=== PATIENT | male | born 2000 | race African-American/Black ===

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

== ENCOUNTER 2018-06-25 12:38 | Emergency (ER) | payer OTHER ==
[~2018-06-25] VITALS: Ht 188 cm; Wt 84.0 kg
[~2018-06-25 12:38] MED LIST changes: +IBUP-1541 PO; +IBUP-1561 PO; -IBUP400T22 PO
[2018-06-25 12:42] VITALS: BP 173/74; PULSE 69; RESP 20; Ht 188 cm; Wt 84.0 kg
--- NOTE | 2018-06-25 13:29 | ERD ---
ER Documentation Chief Complaint Chief Complaint frequent urination-dark urine since yesterday; denies foul smelling/pain HPI This a very pleasant 17-year-old male who presents to the emergency room stating that he has urinary frequency. The patient states that he has been told he has high blood pressure since the age of 14. Patient is an athlete at a local college. States that he exercises regularly. He denies any dysuria or urgency. He notes some darkening of the urine. He does not take anything for his blood pressure. He denies any headache chest pain or shortness of breath. No penile lesions or history of STDs. The patient denies any drugs or alcohol. ROS All systems reviewed and are negative except as per history of present illness. Medications Home Meds Active Scripts Bacitracin* (Bacitracin Oint (UD)*) 1 Applic Oint, 1 APPLIC TOP ONCE for 7 Days, PKT APPLY TO Prov:DOMENIC TRONCOSO 07/08/15 Ibuprofen* (Motrin*) 400 Mg Tab, 400 MG PO Q6H PRN for PAIN AND OR ELEVATED TEMP, #30 TAB Prov:MARQUISE PEREZ [employer]AVA [employer]ACLE DEVELOPER 03/14/15 Reported Medications Ibuprofen* (Ibuprofen*) Unknown Strength Tablet, PO QID, TAB 03/14/15 Allergies Allergies: Coded Allergies: peanut (Verified Allergy, Unknown, 07/08/15) shellfish derived (Verified Allergy, Unknown, 07/08/15) PMhx/Soc History of Surgery: No Anesthesia Reaction: No Hx Neurological Disorder: No Hx Respiratory Disorders: Yes (asthma) Hx Cardiac Disorders: No Hx Psychiatric Problems: No Hx Miscellaneous Medical Probl: No Hx Alcohol Use: No Hx Substance Use: No Hx Tobacco Use: No Smoking Status: Never smoker FmHx Family History: No diabetes, No coronary disease Physical Exam Vitals Vital Signs Date Temp Pulse Resp B/P (MAP) Pulse Ox O2 O2 Flow FiO2 Time Delivery Rate 06/25/18 97.2 69 20 173/74 100 12:42 (107) Physical Exam General: Well developed, well nourished, no acute distress Head: Normocephalic, atraumatic. Eyes: Pupils equally reactive, EOM intact ENT: Moist mucous membranes Neck: Supple, no lymphadenopathy Respiratory: Lungs clear bilaterally, no distress Cardiovascular: RRR, no murmurs, rubs, or gallops Abdominal: Soft, non-tender, non-distended, no peritoneal signs : Deferred MSK: No edema, no unilateral swelling, 5/5 strength Neurologic: Alert and oriented, moving all extremities, normal speech, no focal weakness, no cerebellar signs Skin: No rash Psych: Normal mood Result Diagram: 06/25/18 1310 Results 24 hrs Laboratory Tests Test 06/25/18 13:10 Urine Color COLORLESS Urine Clarity CLEAR Urine pH 7.0 Urine Specific [place] 1.001 Urine Ketones NEGATIVE mg/dL Urine Nitrite NEGATIVE mg/dL Urine Bilirubin NEGATIVE mg/dL Urine Urobilinogen NEGATIVE mg/dL Urine Leukocyte Esterase NEGATIVE Erich/ul Urine Hemoglobin NEGATIVE mg/dL Urine Glucose NEGATIVE mg/dL Urine Total Protein NEGATIVE mg/dl Sodium Level 145 mmol/L Potassium Level 3.7 mmol/L Chloride Level 105 mmol/L Carbon Dioxide Level 29 mmol/L Anion Gap 11 Blood Urea Nitrogen 13 mg/dl Creatinine 0.94 mg/dl Est Glomerular Filtrat Rate mL/min > 60 mL/min Glucose Level 99 mg/dl Calcium Level 10.2 mg/dl Procedures/MDM LAB INTERPRETATION: I reviewed the laboratory testing and it shows no evidence of acute process MEDICAL DECISION MAKING: Patient presents with asymptomatic hypertension and urinary frequency. A broad differential exists, this is possibly related to his underlying essential hypertension. The patient needs to talk to his primary care physician. He saw the primary care doctor 2 months ago. They did not have an active plan for his blood pressure. I do not feel comfortable initiating antihypertensive medications in the emergency room setting given recent follow-up with primary care physician. Patient will benefit from chemistry profile, urinalysis to rule out infectious process or renal insufficiency related to hypertension. No chest pain or headache to suggest hypertensive emergency. ER COURSE: * Laboratory testing is otherwise unrevealing. At this point the patient can be safely discharged with close primary care follow-up. * Patient's blood pressure was elevated (>120/80) but appears stable without evidence of hypertensive emergency or urgency. The patient was counseled about the risks of hypertension and urged to pursue outpatient monitoring and therapy within a week with their primary care physician. CONSULTATION: None DISPOSITION PLAN: The patient does not have an identifiable emergent medical condition that warrants inpatient hospitalization at this time. The patient is deemed safe for discharge with outpatient follow-up. We discussed follow up with the patient's primary care doctor within 24 to 48 hours as needed. We also discussed return to the emergency room for worsening symptoms or worsening condition. Outpatient referral: None required Discharge Medications: None required Departure Diagnosis: Primary Impression: Asymptomatic hypertension Additional Impression: Urinary frequency Condition: Stable JASON BEDOLLA MD Jun 25, 2018 13:29
== END 2018-06-25 14:09 | disposition home or self-care (01) ==
LOC: FTE 12:38
DX: I10 Essential (primary) hypertension (principal); J45.909 Unspecified asthma, uncomplicated; Z91.010 Allergy to peanuts
CPT/HCPCS: 36415; 80048; 81003; Z7502; 99283

== ENCOUNTER 2018-08-12 15:35 | Emergency (ER) | payer OTHER ==
[~2018-08-12] VITALS: Ht 193 cm; Wt 85.0 kg
[2018-08-12 15:38] VITALS: Ht 193 cm; Wt 85.0 kg
[2018-08-12] MEDS ORDERED: KETOROLAC 30 MG INJ IM STA (16:01)
--- NOTE | 2018-08-12 16:06 | ERD ---
ER Documentation Chief Complaint Chief Complaint BACK PAIN HPI Patient is a 17 years old male accompanied by his mother presenting to the clinic for severe low back pain (09/10) x 3 weeks without radiation. Patient reports doing squats of 200lbs in the gym prior to onset of symptoms. Patient admits to OTC ibuprofen with resolution of symptoms. Patient is reporting of urinary frequency for some time without dysuria. ROS All systems reviewed and are negative except as per history of present illness. Medications Home Meds Active Scripts Tizanidine Hcl* (Tizanidine Hcl*) 4 Mg Tablet, 4 MG PO Q8H PRN for SPASTICITY for 7 Days, #21 TAB Prov:BLAYNE BAILEY PA-C 08/12/18 Ibuprofen* (Motrin*) 800 Mg Tab, 800 MG PO Q6, #30 TAB Prov:BLAYNE BAILEY PA-C 08/12/18 Bacitracin* (Bacitracin Oint (UD)*) 1 Applic Oint, 1 APPLIC TOP ONCE for 7 Days, PKT APPLY TO Prov:DOMENIC TRONCOSO 07/08/15 Ibuprofen* (Motrin*) 400 Mg Tab, 400 MG PO Q6H PRN for PAIN AND OR ELEVATED TEMP, #30 TAB Prov:MARQUISE PEREZ NP 03/14/15 Reported Medications Ibuprofen* (Ibuprofen*) Unknown Strength Tablet, PO QID, TAB 03/14/15 Allergies Allergies: Coded Allergies: peanut (Verified Allergy, Unknown, 08/12/18) shellfish derived (Verified Allergy, Unknown, 08/12/18) PMhx/Soc History of Surgery: No Anesthesia Reaction: No Hx Neurological Disorder: No Hx Respiratory Disorders: Yes (asthma) Hx Cardiac Disorders: No Hx Psychiatric Problems: No Hx Miscellaneous Medical Probl: No Hx Alcohol Use: No Hx Substance Use: No Hx Tobacco Use: No Physical Exam Vitals Vital Signs Date Temp Pulse Resp B/P (MAP) Pulse Ox O2 O2 Flow FiO2 Time Delivery Rate 08/12/18 98.5 71 18 157/68 99 15:38 (97) Physical Exam Const: No acute distress Head: Atraumatic Eyes: Normal Conjunctiva Resp: Clear to auscultation bilaterally Cardio: Regular rate and rhythm, no murmurs Back: No midline or flank tenderness. Paravertebral muscle spasm with mild tenderness. Neur: Awake and alert Psych: Normal Mood and Affect Results 24 hrs Laboratory Tests Test 08/12/18 16:08 Urine Color YELLOW Urine Clarity CLEAR Urine pH 7.0 Urine Specific [place] 1.010 Urine Ketones NEGATIVE mg/dL Urine Nitrite NEGATIVE mg/dL Urine Bilirubin NEGATIVE mg/dL Urine Urobilinogen NEGATIVE mg/dL Urine Leukocyte Esterase NEGATIVE Erich/ul Urine Hemoglobin NEGATIVE mg/dL Urine Glucose NEGATIVE mg/dL Urine Total Protein NEGATIVE mg/dl Current Medications Medications Dose Sig/Nohelia Start Time Status Last (Trade) Ordered Route PRN Stop Time Admin Dose Reason Admin Ketorolac 30 mg ONCE STAT 08/12/18 DC 08/12/18 Tromethamine IM 16:01 16:09 (Toradol) 08/12/18 16:03 500 mg ONCE ONCE 08/12/18 DC 08/12/18 Methocarbamol PO 16:30 16:18 (Robaxin) 08/12/18 16:31 Procedures/MDM Patient was seen and evaluated for low back pain and urinary frequency. Patient requested imaging of lumbar which revealed no abnormalities. Patient's low back pain is most consistent with low back injury/muscle spams status post heavy lifting. Urinalysis is unremarkable. Lumbar X-Ray revealed retrolisthesis. Patient was advised to f/u with PCP for further evaluation. Patient is stable and ready for discharge. Departure Diagnosis: Primary Impression: Low back pain Chronicity: acute Back pain laterality: bilateral Sciatica presence: without sciatica Qualified Codes: M54.5 - Low back pain Condition: Stable Patient Instructions: Causes of Lumbar (Low Back) Pain Referrals: [facility] Additional Instructions: Patient advised to return to the ED immediately for new or worsening symptoms. Patient advised to follow up with primary care provider in the next 24-48 hours. Patient verbalized understanding and agrees with treatment plan and course of action. If patient has no primary care they may follow up with [facility] + [facility] [address] [place] [id number] or [facility] [address] [place] [address] or [facility] [address] [place] [address] BLAYNE BAILEY PA-C Aug 12, 2018 16:06
[2018-08-12] MEDS ORDERED: METHOCARBAMOL 500 MG TAB PO ONE (16:30)
[2018-08-12] MEDS ORDERED: IBUP800T48 PO (17:38)
[2018-08-12] MEDS ORDERED: TIZA4TAB PO (17:38)
[2018-08-12 17:56] VITALS: BP 139/59; PULSE 66; RESP 18
== END 2018-08-12 17:58 | disposition home or self-care (01) ==
LOC: FTE 15:35
DX: M54.5 Low back pain (principal); J45.909 Unspecified asthma, uncomplicated
CPT/HCPCS: 72100; 81003; 96372; J1885; Z7502; Z7610